=== PATIENT | male | born 1990 | race African-American/Black ===

== ENCOUNTER 2017-04-27 13:57 | Emergency (ER) | payer MEDICAID, OTHER ==
[~2017-04-27] VITALS: Ht 172.7 cm; Wt 82.0 kg
[2017-04-27 14:25] VITALS: BP 141/82
== END 2017-04-27 15:20 | disposition home or self-care (01) ==
LOC: ER 15:16
DX: L73.9 Follicular disorder, unspecified (principal); G89.18 Other acute postprocedural pain; Z98.890 Other specified postprocedural states
CPT/HCPCS: 99283

== ENCOUNTER 2017-05-15 08:38 | Emergency (ER) | payer OTHER ==
[~2017-05-15] VITALS: Ht 172.7 cm; Wt 82.0 kg
[2017-05-15] MEDS ORDERED: KETOROLAC 60MG/2ML VIAL IM ONE (10:30)
[2017-05-15 10:50] VITALS: BP 134/71
== END 2017-05-15 11:22 | disposition home or self-care (01) ==
LOC: ER 08:50
DX: L73.1 Pseudofolliculitis barbae (principal); G89.18 Other acute postprocedural pain; S82.202D Unspecified fracture of shaft of left tibia, subsequent encounter for closed fracture with routine healing; X58.XXXD Exposure to other specified factors, subsequent encounter
CPT/HCPCS: 96372; 99283; J1885

== ENCOUNTER 2017-11-05 15:29 | Emergency (ER) | payer OTHER ==
[~2017-11-05] VITALS: Ht 172.7 cm; Wt 95.5 kg
[2017-11-05 15:40] VITALS: BP 131/77
== END 2017-11-05 17:37 | disposition home or self-care (01) ==
LOC: ER 16:00
DX: S93.402A Sprain of unspecified ligament of left ankle, initial encounter (principal); F12.10 Cannabis abuse, uncomplicated; Z87.81 Personal history of (healed) traumatic fracture; W18.39XA Other fall on same level, initial encounter; Y93.01 Activity, walking, marching and hiking; Y92.89 Other specified places as the place of occurrence of the external cause; Y99.8 Other external cause status
CPT/HCPCS: 73610; 99284